=== PATIENT | female | born 1985 | race Caucasian/White ===

== ENCOUNTER 2016-10-25 06:16 | Emergency (ER) | payer BC ==
[~2016-10-25] VITALS: Ht 149.9 cm; Wt 70.0 kg
[~2016-10-25 06:16] MED LIST: IBUP-1542 PO; LITHIUM 600 MG PO; LORA-441 PO; LORAZEPAM 0.5 MG; ONDA4TAB11 PO; SODI44SP11 NASAL; VIC
[2016-10-25 06:21] VITALS: Ht 149.9 cm; Wt 70.0 kg
[2016-10-25] MEDS ORDERED: LORAZEPAM 2 MG INJ IM ONE (07:30)
[2016-10-25] MEDS ORDERED: EMTRICITABINE/TENOFOVIR TAB PO ONE (07:30)
[2016-10-25] MEDS ORDERED: RALTEGRAVIR 400 MG TAB PO ONE (07:30)
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
[2016-10-25] MEDS ORDERED: TENO300T2 PO (07:43)
[2016-10-25] MEDS ORDERED: EMTR200 PO (07:43)
[2016-10-25] MEDS ORDERED: RALT400T4 PO (07:43)
[2016-10-25 07:45] LABS: BASOPHILS % 0.6 % (0.0-2.0); EOSINOPHILS # 0.1 10^3/ul (0.0-0.5); EOSINOPHILS % 0.8 % (0.0-7.0); HEMATOCRIT 38.4 % (37.0-47.0); HEMOGLOBIN 12.8 g/dl (12.0-16.0); LYMPHOCYTES # 2.1 10^3/ul (0.8-2.9); LYMPHOCYTES % 24.6 % (15.0-51.0); MEAN CORPUSCULAR HEMOGLOBIN 24.1 pg (29.0-33.0); MEAN CORPUSCULAR HGB CONC 33.3 g/dl (32.0-37.0); MEAN CORPUSCULAR VOLUME 72.6 fl (82.0-101.0); MEAN PLATELET VOLUME 9.3 fl (7.4-10.4); MONOCYTE # 0.4 10^3/ul (0.3-0.9); MONOCYTES % 4.8 % (0.0-11.0); NEUTROPHIL # 5.9 10^3/ul (1.6-7.5); NEUTROPHILS % 69.2 % (39.0-77.0); PLATELET COUNT 272 10^3/UL (140-440); RED BLOOD COUNT 5.29 10^6/ul (4.20-5.40); RED CELL DISTRIBUTION WIDTH 19.4 % (11.5-14.5); UNCORRECTED WBC 8.5 10^3/ul (4.8-10.8); WHITE BLOOD COUNT 8.5 10^3/ul (4.8-10.8)
[2016-10-25 07:51] LABS: CONDITION 1; LH ANALYZER COMMENTS 1
[2016-10-25 07:54] LABS: ALBUMIN 4.4 g/dl (3.3-4.9); CHLORIDE 104 mmol/L (97-110)
[2016-10-25 07:55] LABS: POTASSIUM 4.1 mmol/L (3.5-5.1); SODIUM 143 mmol/L (135-144)
[2016-10-25 07:57] LABS: ALBUMIN/GLOBULIN RATIO 1.37; ALKALINE PHOSPHATASE 110 IU/L (42-121); ANION GAP 16 (8-16); ASPARTATE AMINO TRANSFERASE 26 IU/L (15-46); BLOOD UREA NITROGEN 14 mg/dl (7-20); CARBON DIOXIDE 27 mmol/L (21-31); TOTAL PROTEIN 7.6 g/dl (6.1-8.1)
[2016-10-25 07:58] LABS: ALANINE AMINOTRANSFERASE 30 IU/L (13-69); CALCIUM 9.3 mg/dl (8.4-10.2); GLUCOSE 88 mg/dl (70-220)
== END 2016-10-25 09:31 | disposition home or self-care (01) ==
LOC: FTE 06:16
DX: S61.239A Puncture wound without foreign body of unspecified finger without damage to nail, initial encounter (principal); W46.1XXA Contact with contaminated hypodermic needle, initial encounter; Y92.89 Other specified places as the place of occurrence of the external cause
CPT/HCPCS: 80053; 85025; 86703; 86706; 86803; 87340; J2060; Z7610; 96372

== ENCOUNTER 2017-03-23 09:32 | Emergency (ER) | payer BC ==
[~2017-03-23] VITALS: Wt 63.6 kg
[~2017-03-23 09:32] MED LIST changes: +EMTR200 PO; +RALT400T4 PO; +TENO300T2 PO
[2017-03-23] MEDS ORDERED: KETOROLAC 60 MG INJ IM STA (10:02)
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
[2017-03-23 10:15] LABS: URINE BLOOD (Dip) POC Trace-lysed (NEGATIVE)
[2017-03-23] MEDS ORDERED: DIAZEPAM 5 MG TAB PO ONE (10:30)
--- NOTE | 2017-03-23 11:21 | RADRPT ---
PROCEDURE: XR Lumbar Spine 3 Views. CLINICAL INDICATION: Low back pain. TECHNIQUE: Lumbar spine study including AP, lateral and coned L5-S1 views was performed. COMPARISON: No prior studies are available for comparison. FINDINGS: Lumbar spine demonstrates a normal lordosis. No fractures or destructive bony lesions are observed. Intervertebral disk heights appear normal. The facet joints are unremarkable. Soft tissues surro unding the spine appear normal. IMPRESSION: Unremarkable lumbar spine. If further characterization is needed CT or MRI could be helpful. If there is high clinical suspicion for traumatic injury, further evaluation with CT should be consi dered. RPTAT: AA .Chilango Ogden MD, MD Date Time Electronically viewed and signed by .Chilango Ogden MD, on 03/23/2017 11:20 .P/
[2017-03-23] MEDS ORDERED: traMADol 50 MG TAB PO ONE (11:30)
--- NOTE | 2017-03-23 12:44 | RADRPT ---
PROCEDURE: CT L-S Spine without Contrast CLINICAL INDICATION: Low back pain radiating down right lower extremity TECHNIQUE: Transaxial images were obtained through the lumbosacral spine on a multi sliced scanner without contrast. Sagittal and coronal re-formations were subsequently reformatted. One or more of the following dose reduction techniques were used: - Automated exposure control. - Adjustment of the mA and/or kV according to patient size. - Use of iterative reconstruction technique. Radiation dose: CTDIvol = 10.95 mGy; DLP = 275.23 mGy-cm. COMPARISON: Comparison to the radiographs done earlier on the same date. The previous radiographs are unremarkable. FINDINGS: Osseous structures: Appear intact with no fracture or destructive process identified. Alignment: Align satisfactorily without subluxation. Disk spaces, endplates, and facet joints: Are well maintained. No significant disk bulge or herniat ion is identified. There is no significant stenosis to the central canal hour to a nerve root canal. Soft tissues: Are unremarkable. IMPRESSION: Unremarkable CT scan of the lumbosacral spine. Physician Claribel Date Time Electronically viewed and signed by Physician Claribel on 03/23/2017 12:44 /
[2017-03-23] MEDS ORDERED: HYDR-906 PO (13:01)
[2017-03-23] MEDS ORDERED: NAPR-260 PO (13:01)
== END 2017-03-23 13:11 | disposition home or self-care (01) ==
LOC: FTE 09:32
DX: S39.92XA Unspecified injury of lower back, initial encounter (principal); W50.1XXA Accidental kick by another person, initial encounter; Y92.89 Other specified places as the place of occurrence of the external cause
CPT/HCPCS: 72100; 72131; 81003; 96372; 99285; J1885; Z7610

== ENCOUNTER 2019-05-10 20:56 | Emergency (ER) | payer BC ==
[~2019-05-10] VITALS: Ht 157.5 cm; Wt 65.0 kg
[~2019-05-10 20:56] MED LIST changes: +CYCL10TA7 PO; +HYDR-4011 PO; +ISEN400 PO; +NAPR-985 PO; -RALT400T4 PO; -TENO300T2 PO; +[UNRECOGNIZED DRUG - CODE] PO
[2019-05-10 20:59] VITALS: Ht 157.5 cm; Wt 65.0 kg
[2019-05-10] MEDS ORDERED: KETOROLAC 30 MG INJ IM STA (22:27)
[2019-05-11 00:15] VITALS: BP 122/75; PULSE 79; RESP 16
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
== END 2019-05-11 00:16 | disposition home or self-care (01) ==
LOC: FTE 20:56
DX: S13.4XXA Sprain of ligaments of cervical spine, initial encounter (principal); M62.830 Muscle spasm of back; V43.52XA Car driver injured in collision with other type car in traffic accident, initial encounter
CPT/HCPCS: 72100; 81025; J1885; 96372

== ENCOUNTER 2019-07-18 20:37 | Emergency (ER) | payer BC ==
[~2019-07-18] VITALS: Ht 149.9 cm; Wt 59.7 kg
[~2019-07-18 20:37] MED LIST changes: +BEN25 PO; +FAMO-96 PO; +FLUC150T PO; +METR500T PO; +NITR-58 PO
[2019-07-18 20:54] VITALS: Ht 149.9 cm; Wt 59.7 kg
[2019-07-18] MEDS ORDERED: AZITHROMYCIN 500 MG TAB PO ONE (22:30)
[2019-07-18] MEDS ORDERED: LIDOCAINE 1% (MPF) 5 ML VIAL INFIL ONE (23:30)
[2019-07-18] MEDS ORDERED: CEFTRIAXONE 250 MG INJ IM ONE (23:30)
[2019-07-18] MEDS ORDERED: ONDANSETRON (ODT) 4 MG TAB ODT STA (23:36)
[2019-07-19 01:14] VITALS: BP 118/82; PULSE 68; RESP 18
== END 2019-07-19 01:15 | disposition home or self-care (01) ==
LOC: FTE 20:37
DX: N39.0 Urinary tract infection, site not specified (principal); N89.8 Other specified noninflammatory disorders of vagina
CPT/HCPCS: 76830; 76856; 80053; 81001; 81025; 83690; 85025; 87086; 87210; 87591; 96372; 99285; J0696; Z7610

== ENCOUNTER 2019-07-23 09:49 | Emergency (ER) | payer BC ==
[~2019-07-23] VITALS: Ht 149.9 cm; Wt 61.2 kg
[2019-07-23 09:56] VITALS: BP 134/63; PULSE 78; RESP 19; Ht 149.9 cm; Wt 61.2 kg
[2019-07-23] MEDS ORDERED: DEXAMETHASONE 10 MG/ML 1 ML INJ IM ONE (11:30)
[2019-07-23] MEDS ORDERED: FAMOTIDINE 20 MG TAB PO ONE (11:30)
== END 2019-07-23 13:04 | disposition home or self-care (01) ==
LOC: FTE 09:49
DX: L50.9 Urticaria, unspecified (principal)
CPT/HCPCS: 81001; 87086; 96372; 99284; J1100; Z7610